=== PATIENT | male | born 1975 | race Caucasian/White ===

== ENCOUNTER 2017-10-28 09:54 | Emergency (ER) | payer OTHER ==
[~2017-10-28] VITALS: Ht 175.3 cm; Wt 90.7 kg
[2017-10-28 09:54] VITALS: BP 166/107
== END 2017-10-28 11:11 | disposition home or self-care (01) ==
LOC: ER 09:58
DX: J01.80 Other acute sinusitis (principal); H66.92 Otitis media, unspecified, left ear
CPT/HCPCS: 99283; A4606; Z7610